=== PATIENT | female | born 1965 | race Caucasian/White ===

== ENCOUNTER 2021-08-01 16:10 | Emergency (ER) | payer BC ==
[~2021-08-01 16:10] MED LIST: ZOFRAN 4 MG TAB4 MG PO
== END 2021-08-01 16:40 | disposition left against medical advice (07) ==
LOC: ER1 16:10
DX: Z53.21 Procedure and treatment not carried out due to patient leaving prior to being seen by health care provider (principal)

== ENCOUNTER 2021-08-17 14:52 | Emergency (ER) | payer BC ==
[2021-08-17 15:59] LABS: HEMOGLOBIN 11.1 gm/dl (12.3-15.3); RED BLOOD COUNT 3.83 M/UL (4.00-5.10); WHITE BLOOD COUNT 10.9 K/UL (4.5-11.0)
[2021-08-17 16:19] LABS: BUN/CREATININE RATIO 15 (0-10)
== END 2021-08-17 17:58 | disposition home or self-care (01) ==
LOC: ER1 14:52
PROVIDERS: Preventive Medicine Occupational Medicine
DX: R06.00 Dyspnea, unspecified (principal)
CPT/HCPCS: 80048; 85025; 93005; 99285; Q9967